=== PATIENT | female | born 1950 | race Caucasian/White ===

== ENCOUNTER 2021-06-11 13:45 | Outpatient (CLI) | payer MEDICARE, OTHER, SELFPAY ==
[2021-06-11 16:41] LABS: Free T4 Free Thyroxine 1.22 ng/mL (0.78-2.19)
[2021-06-14 07:18] LABS: Triiodothyronine T3 Free 2.8 pg/mL (2.3-4.2)
== END 2021-06-11 13:46 | disposition home or self-care (01) ==
LOC: ANHWCLAB 13:49
PROVIDERS: Visit Provider Internal Medicine Endocrinology, Diabetes & Metabolism
DX: E03.8 Other specified hypothyroidism (principal); E04.2 Nontoxic multinodular goiter; E05.90 Thyrotoxicosis, unspecified without thyrotoxic crisis or storm
CPT/HCPCS: 36415; 84439; 84443; 84481